=== PATIENT | female | born 2000 | race Caucasian/White ===

== ENCOUNTER 2021-06-06 17:57 | Emergency (ER) | payer BC ==
[~2021-06-06 17:57] MED LIST: LODINE CAP 300300 MG PO
[2021-06-06] MEDS ORDERED: DOXYCYCLINE MO100 MG PO (19:36)
== END 2021-06-06 19:50 | disposition home or self-care (01) ==
LOC: ER1 17:57
DX: K02.9 Dental caries, unspecified (principal); Z88.1 Allergy status to other antibiotic agents; Z88.8 Allergy status to other drugs, medicaments and biological substances
CPT/HCPCS: 99282

== ENCOUNTER → 2021-09-08 | Outpatient (CLI) | payer BC ==
[~2021-09-08] MED LIST changes: +DOXYCYCLINE MO100 MG PO
[2021-09-08 17:37] LABS: HEMOGLOBIN 13.6 gm/dl (12.3-15.3); RED BLOOD COUNT 4.71 M/UL (4.00-5.10); WHITE BLOOD COUNT 8.6 K/UL (4.5-11.0)
[2021-09-08 17:59] LABS: BUN/CREATININE RATIO 24 (0-10)
[2021-09-11 19:09] LABS: CHOLESTEROL, TOTAL 213 mg/dL (100-199); HDL SIZE 9.2 nm (>=9.2); HDL-C 56 mg/dL (>39); HDL-P (TOTAL) 30.1 umol/L (>=30.5); LARGE VLDL-P 2.6 nmol/L (<=2.7); LDL SIZE 21.6 nm (>20.5); LDL SIZE 21.6 nm (>=20.8); LDL-C 144 mg/dL (0-99); LDL-P 1526 nmol/L (<1000); LP-IR SCORE 45 (<=45); SMALL LDL-P 254 nmol/L (<=527); TRIGLYCERIDES 71 mg/dL (0-149); VLDL SIZE 50.2 nm (<=46.6)
== END ==
LOC: LAB 16:48
PROVIDERS: Nurse Practitioner Family
DX: Z00.8 Encounter for other general examination (principal)
CPT/HCPCS: 36415; 80053; 80061; 82607; 83036; 83704; 84443; 85027

== ENCOUNTER → 2022-03-08 | Outpatient (CLI) | payer BC, OTHER | LOC: EXRD 02-09 10:15 | DX: R10.11 Right upper quadrant pain (principal); K80.20 Calculus of gallbladder without cholecystitis without obstruction; R93.2 Abnormal findings on diagnostic imaging of liver and biliary tract | CPT/HCPCS: 76700 ==